=== PATIENT | male | born 1960 | race Caucasian/White ===

== ENCOUNTER 2024-04-16 21:53 | Inpatient (IN) | payer MEDICARE, OTHER ==
[~2024-04-16] VITALS: Ht 167.6 cm; Wt 72.6 kg
[2024-04-16 19:50] VITALS: BP 130/55; TEMP 97.9; O2SAT 95
[2024-04-16] MEDS ORDERED: PANT40TA49 PO (22:43)
[2024-04-16] MEDS ORDERED: EMPA25TA PO (22:43)
[2024-04-16] MEDS ORDERED: INSU100I26 SQ (22:43)
[2024-04-16] MEDS ORDERED: ACET325T53 PO (22:43)
[2024-04-16] MEDS ORDERED: ZOLP5TAB8 PO (22:43)
[2024-04-16] MEDS ORDERED: APIX2.5T PO (22:43)
[2024-04-16] MEDS ORDERED: LORA-259 PO (22:43)
[2024-04-16] MEDS ORDERED: OXYC-592 PO (22:43)
[2024-04-16] MEDS ORDERED: POLY250017 PO (22:43)
[2024-04-16] MEDS ORDERED: METF-494 PO (22:43)
[2024-04-16] MEDS ORDERED: ATOR10TA PO (22:43)
[2024-04-16] MEDS ORDERED: NALO4SPR BNOSTRILS (22:43)
[2024-04-16] MEDS ORDERED: LISI10TA29 PO (22:43)
[2024-04-16] MEDS ORDERED: SENN-202 PO (22:43)
[2024-04-16] MEDS ORDERED: TRAM50TA2 PO (22:43)
[2024-04-16] MEDS ORDERED: MELO-107 PO (22:43)
[2024-04-16] MEDS ORDERED: GABA100C PO (22:43)
[2024-04-16] MEDS ORDERED: REMEDY ESSENTIAL ZINC PASTE 113 GM TOP PRN (22:45)
[2024-04-16] MEDS ORDERED: SENNOSIDES/DOCUSATE SODIUM TABLET PO PRN (23:15)
[2024-04-17] MEDS: ZOLPIDEM 5 MG TABLET PO SCH (00:43)
[2024-04-17] MEDS ORDERED: MIRALAX 17 GM POWD.PACK PO PRN (00:45)
[2024-04-17] MEDS ORDERED: OXYCODONE HCL 5 MG TABLET PO PRN (00:45)
[2024-04-17 07:03] VITALS: BP 150/86; TEMP 98; O2SAT 94
[2024-04-17] MEDS ORDERED: METFORMIN XR 500 MG TAB.SR.24H PO SCH ×2 (08:00→18:00)
[2024-04-17] MEDS: PANTOPRAZOLE SODIUM 40 MG TABLET.DR PO SCH (08:34)
[2024-04-17] MEDS: MELOXICAM 7.5 MG TABLET PO SCH (08:34)
[2024-04-17] MEDS: METFORMIN HCL 500 MG TABLET PO ONE (08:34)
[2024-04-17] MEDS: OXYCODONE HCL 5 MG TABLET PO PRN ×2 (08:35→16:51)
[2024-04-17] MEDS: GABAPENTIN 100 MG CAPSULE PO SCH (08:35)
[2024-04-17] MEDS: APIXABAN 2.5 MG TABLET PO SCH (08:37)
[2024-04-17] MEDS: LISINOPRIL 10 MG TABLET PO SCH (08:40)
[2024-04-17] MEDS ORDERED: EMPAGLIFLOZIN 10 MG TABLET PO SCH ×2 (09:00)
[2024-04-17] MEDS ORDERED: TRAMADOL HCL 50 MG TABLET PO SCH ×2 (09:00)
[2024-04-17] MEDS: EMPAGLIFLOZIN 25 MG TABLET PO SCH (09:38)
[2024-04-17 11:40] VITALS: BP 143/96; O2SAT 97
[2024-04-17] MEDS ORDERED: METF-440 PO (11:46)
[2024-04-17] MEDS: TRAMADOL HCL 50 MG TABLET PO SCH (13:30)
[2024-04-17 14:20] VITALS: BP 113/74; O2SAT 95
[2024-04-17 15:56] VITALS: BP 132/82; TEMP 97.9; O2SAT 97
[2024-04-17] MEDS: METFORMIN HCL 500 MG TABLET PO SCH (17:23)
[2024-04-17 17:28] VITALS: BP 134/80; TEMP 98.2; O2SAT 95
[2024-04-17 20:37] VITALS: BP 103/62; TEMP 97.9; O2SAT 96
[2024-04-17] MEDS ORDERED: ZOLPIDEM 5 MG TABLET PO PRN (21:00)
[2024-04-18 06:57] VITALS: BP 124/78; TEMP 97.7; O2SAT 94
[2024-04-18 16:27] VITALS: BP 123/72; TEMP 98.2; O2SAT 96
[2024-04-18 17:08] VITALS: BP 120/72; O2SAT 95
[2024-04-18 20:07] VITALS: BP 130/71; TEMP 98.1; O2SAT 97
[2024-04-19 05:50] VITALS: BP 120/72; TEMP 97.6; O2SAT 96
[2024-04-19 07:51] LABS: BASOPHILS % (AUTO) 0.3 % (0.0-2.0); EOSINOPHILS # (AUTO) 0.1 K/uL (0.0-0.7); EOSINOPHILS % (AUTO) 1.3 % (0.0-7.0); HEMATOCRIT 43.6 % (36.7-47.1); LYMPHOCYTES % (AUTO) 14.1 % (20.5-51.5); MEAN CORPUSCULAR HEMOGLOBIN 34.6 uug (23.8-33.4); MEAN CORPUSCULAR HGB CONC 34 g/dL (32.5-36.3); MEAN CORPUSCULAR VOLUME 100.6 fL (73.0-96.2); MONOCYTES % (AUTO) 14.1 % (0.0-11.0); NEUTROPHILS % (AUTO) 70.2 % (38.5-71.5); PLATELET COUNT (AUTO) 136 K/uL (152-348); RED BLOOD CELL COUNT(AUTO) 4.34 MIL/uL (4.06-5.63); RED CELL DISTRIBUTION WIDTH 13.6 % (12.1-16.2); WHITE BLOOD COUNT (AUTO) 7.2 K/uL (3.6-10.2)
[2024-04-19 08:02] LABS: DIFFERENTIAL COMMENT 1
[2024-04-19 08:10] LABS: ALBUMIN 2.9 g/dL (3.4-5.0); BILIRUBIN,DIRECT 0.3 mg/dL (0.0-0.2); BILIRUBIN,TOTAL 1.1 mg/dL (0.2-1.0); CREATININE 1.1 mg/dL (0.6-1.3); MAGNESIUM 2.1 mg/dL (1.8-2.4); PHOSPHOROUS 3.4 mg/dL (2.5-4.9); POTASSIUM 4.4 mmol/L (3.5-5.1); TOTAL PROTEIN, SERUM 7.7 g/dL (6.4-8.2)
[2024-04-19 15:17] VITALS: BP 97/65; TEMP 98; O2SAT 96
[2024-04-19] MEDS: OXYCODONE HCL 5 MG TABLET PO PRN (18:25)
[2024-04-19 19:35] VITALS: BP 96/63; TEMP 97.9; O2SAT 96
[2024-04-20 06:30] LABS: BASOPHILS % (AUTO) 0.4 % (0.0-2.0); EOSINOPHILS # (AUTO) 0.2 K/uL (0.0-0.7); EOSINOPHILS % (AUTO) 2.9 % (0.0-7.0); HEMATOCRIT 42.2 % (36.7-47.1); HEMOGLOBIN 14.5 g/dL (12.5-16.3); LYMPHOCYTES # (AUTO) 0.9 K/uL (0.8-4.8); LYMPHOCYTES % (AUTO) 14.2 % (20.5-51.5); MEAN CORPUSCULAR HEMOGLOBIN 34.3 uug (23.8-33.4); MEAN CORPUSCULAR HGB CONC 34 g/dL (32.5-36.3); MEAN CORPUSCULAR VOLUME 99.5 fL (73.0-96.2); MONOCYTES # (AUTO) 1.1 K/uL (0.1-1.30); MONOCYTES % (AUTO) 16.4 % (0.0-11.0); NEUTROPHILS # (AUTO) 4.2 K/uL (1.8-8.9); NEUTROPHILS % (AUTO) 66.1 % (38.5-71.5); PLATELET COUNT (AUTO) 150 K/uL (152-348); RED BLOOD CELL COUNT(AUTO) 4.24 MIL/uL (4.06-5.63); RED CELL DISTRIBUTION WIDTH 13.2 % (12.1-16.2); WHITE BLOOD COUNT (AUTO) 6.4 K/uL (3.6-10.2)
[2024-04-20 06:44] LABS: DIFFERENTIAL COMMENT 1
[2024-04-20 06:51] LABS: ALBUMIN 2.6 g/dL (3.4-5.0); BILIRUBIN,TOTAL 0.9 mg/dL (0.2-1.0); CALCIUM 8.9 mg/dL (8.5-10.1); CREATININE 0.9 mg/dL (0.6-1.3); POTASSIUM 4.3 mmol/L (3.5-5.1); TOTAL PROTEIN, SERUM 7.2 g/dL (6.4-8.2)
[2024-04-20 07:00] VITALS: BP 122/75; TEMP 97.5; O2SAT 97
[2024-04-20] MEDS: SENNOSIDES 1 TABLET PO ONE (09:26)
[2024-04-20 10:55] LABS: NEUTROPHILS % (MANUAL) 66 % (42-75)
[2024-04-20 10:56] LABS: EOSINOPHILS % (MANUAL) 4 % (0-8); LYMPHOCYTES % (MANUAL) 14 % (20-40); MONOCYTES % (MANUAL) 16 % (2-10); PLATELET ESTIMATE ADEQUATE
[2024-04-20 15:27] VITALS: BP 98/64; TEMP 98; O2SAT 96
[2024-04-20 20:55] VITALS: BP 110/62; TEMP 98; O2SAT 96
[2024-04-20] MEDS: SENNOSIDES 1 TABLET PO SCH (21:00)
[2024-04-21 05:42] VITALS: BP 114/71; TEMP 97.7
[2024-04-21 15:56] VITALS: BP 120/58; TEMP 98; O2SAT 96
[2024-04-21] MEDS: SENNOSIDES/DOCUSATE SODIUM TABLET PO ONE (17:46)
[2024-04-21] MEDS: VANCOMYCIN IV 1,000 MG in IV DEXTROSE 5% 250 ML IV SCH (18:00)
[2024-04-21] MEDS: HYDROCORTISONE 2.5% ONT. 28.35 GM TUBE TP SCH (20:45)
[2024-04-21 21:25] VITALS: BP 113/68; TEMP 97.7; O2SAT 95
[2024-04-22 06:28] VITALS: BP 117/72; TEMP 97.7; O2SAT 95
[2024-04-22] MEDS: LORATADINE 10 MG TABLET PO SCH (09:19)
[2024-04-22 15:16] VITALS: BP 116/65; TEMP 98; O2SAT 99
[2024-04-22] MEDS: SENNOSIDES 1 TABLET PO SCH (20:08)
[2024-04-22 20:18] VITALS: TEMP 98.6
[2024-04-23 05:42] VITALS: TEMP 98
[2024-04-23 06:16] VITALS: TEMP 98
[2024-04-23 15:20] VITALS: TEMP 98.2
[2024-04-23 20:00] VITALS: BP 98/58; TEMP 97.8; O2SAT 97
[2024-04-24 06:00] VITALS: BP 130/77; TEMP 97.8; O2SAT 96
[2024-04-24 10:37] VITALS: BP 124/77
[2024-04-24] MEDS: TRIAMCINOLONE ACET 0.1% OINT 60 GM TUBE TOP SCH (10:52)
== END 2024-04-24 10:55 | disposition home or self-care (01) | DRG 561 ==
PROVIDERS: ADMIT Physical Medicine & Rehabilitation Pain Medicine; ATTEND Physical Medicine & Rehabilitation Pain Medicine
DX: Z47.1 Aftercare following joint replacement surgery (principal); Z96.641 Presence of right artificial hip joint; D64.9 Anemia, unspecified; E11.9 Type 2 diabetes mellitus without complications; E78.5 Hyperlipidemia, unspecified; I10 Essential (primary) hypertension; I25.10 Atherosclerotic heart disease of native coronary artery without angina pectoris; M16.11 Unilateral primary osteoarthritis, right hip; Z74.09 Other reduced mobility; T78.49XA Other allergy, initial encounter; X58.XXXA Exposure to other specified factors, initial encounter; Y92.230 Patient room in hospital as the place of occurrence of the external cause
CPT/HCPCS: 36415; 70030-TC; 73502; 83735; 84100; 85025; 97535-GO-CO; A4663; J3370; J3590; J7050